=== PATIENT | female | born 1990 | race Caucasian/White ===

== ENCOUNTER → 2016-12-12 | Day surgery (SDC) | payer OTHER ==
[~2016-12-12] VITALS: Ht 180.3 cm; Wt 88.5 kg
[~2016-12-12] MED LIST: ACETAMINOPHEN 650 MG SUPP As Ordered ONE; ACETAMINOPHEN 650 MG SUPP PR ONE; HYDROmorphone HCL 1 MG/ML SYRINGE (J1170) IV PRN; IBUPROFEN 800 MG TAB PO SCH; KETOROLAC 60 MG/2 ML VIAL (J1885) As Ordered ONE; LIDOCAINE 2% INJ 100 MG/5 ML SDV (FOR ANES.) As Ordered ONE; LR 1,000 ML IV ONE; LR 1,000 ML IV SCH; METOCLOPRAMIDE INJ 10MG/2ML VIAL (J2765) As Ordered ONE; METOCLOPRAMIDE INJ 10MG/2ML VIAL (J2765) IV PRN; MIDAZOLAM INJ 2 MG/2 ML VIAL (J2250) As Ordered ONE; ONDANSETRON 4MG/2ML VIAL (J2405) IV PRN; PERCOCET 5MG/325MG TAB PO PRN; PROPOFOL 200 MG/20 ML VIAL As Ordered ONE; fentaNYL 100 MCG/2 ML INJECTION (J3010) As Ordered ONE; fentaNYL 100 MCG/2 ML INJECTION (J3010) IV PRN; no medications
[2016-12-12 06:32] LABS: MEAN CORPUSCULAR HEMOGLOBIN 27.8 pg (27.0-33.0); MEAN CORPUSCULAR HGB CONC 32.7 g/dl (32.0-36.5); MEAN CORPUSCULAR VOLUME 85.2 fl (80.0-96.0); RED CELL DISTRIBUTION WIDTH 13.6 % (11.5-14.5); WHITE BLOOD COUNT 6.1 K/mm3 (4.0-10.0)
[2016-12-12 06:54] LABS: ANION GAP 7 MEQ/L (8-16); BLOOD UREA NITROGEN 20 MG/DL (7-18); CALCIUM LEVEL 8.3 MG/DL (8.5-10.1); CARBON DIOXIDE LEVEL 26 MEQ/L (21-32); CHLORIDE LEVEL 107 MEQ/L (98-107); GLOMERULAR FILTRATION RATE > 60.0 (>60); GLUCOSE, FASTING 96 MG/DL (70-105); HCG, SERUM QUANTITATIVE < 1.0 MIU/ML; POTASSIUM SERUM 4.2 MEQ/L (3.5-5.1); SODIUM LEVEL 140 MEQ/L (136-145)
[2016-12-12 09:30] VITALS: BP 127/70
--- NOTE | 2016-12-21 10:36 | RO ---
DATE OF PROCEDURE: 12/12/2016 PREOPERATIVE DIAGNOSES: Intrauterine polyp, abnormal uterine bleeding, dysmenorrhea. POSTOPERATIVE DIAGNOSES: Intrauterine polyp, cervical stenosis, abnormal uterine bleeding. OPERATION PROPOSED: Hysteroscopy, dilatation and curettage, removal of polyp. OPERATION PERFORMED: Dilatation, curettage, hysteroscopy, removal of polyp. ANESTHESIA: General. ESTIMATED BLOOD LOSS: Less than 20 mL. SURGEON: Jaron Perez MD DESCRIPTION OF PROCEDURE: After adequate time-out, prepped and draped in lithotomy position, sequentials on board, no antibiotics required acetaminophen suppository 1300 mg per rectum. The bladder was drained for 150 mL of clear urine. Weighted speculum in vagina. Single-tooth tenaculum on the anterior lip of the cervix. We had some difficulty in dilating the cervix and establishing intrauterine space because of cervical stenosis secondary to previous cone biopsy operative procedure. We eventually were able to get in and found that she has quite stenotic area in the posterior aspect of the cervical canal about chcf up. Once we were able to establish identification of the uterine cavity, we sounded to 8 cm. Using the 30 degrees hysteroscope, we used 150 mL in and 150 mL out of normal saline. Panoramic review revealed the os on the right and the os on the left. On the posterior wall on the right was a long thinned area polypoid looking material. This was removed and sent to pathology under separate cover. The rest of the anatomy appeared to be normal. I believe that if this lady has any other issues and if she has completed her family, she may was use the option of Mirena IUCD or an endometrial ablation. I would think that with the dilatation of the cervix should resolve a history of dysmenorrhea and the rest of the examination was unremarkable. Instrument and pad count correct. The patient was then sent to recovery in good condition.
== END ==
LOC: M SDC 06:07
PROVIDERS: ATTEND Obstetrics & Gynecology
DX: N93.9 Abnormal uterine and vaginal bleeding, unspecified (principal); N84.0 Polyp of corpus uteri; N88.2 Stricture and stenosis of cervix uteri; D64.9 Anemia, unspecified; M54.2 Cervicalgia; L30.9 Dermatitis, unspecified; N80.9 Endometriosis, unspecified; Z90.721 Acquired absence of ovaries, unilateral
CPT/HCPCS: 36415; 58558; 80048; 84702; 85027; 88305; J1885; J2250; J2765; J3010